=== PATIENT | female | born 1940 ===

== ENCOUNTER → 2024-09-27 09:06 | Outpatient (REF) | payer OTHER, SELFPAY | LOC: HWRCS 09:06 | PROVIDERS: ATTENDING PHYSICIAN Internal Medicine Cardiovascular Disease; FAMILY PHYSICIAN Family Medicine | DX: I25.10 Atherosclerotic heart disease of native coronary artery without angina pectoris (principal); R00.2 Palpitations | CPT/HCPCS: 93306 ==